=== PATIENT | female | born 1985 | race Caucasian/White ===

== ENCOUNTER 2019-05-26 08:35 | Emergency (ER) | payer OTHER ==
[~2019-05-26] VITALS: Ht 170.2 cm; Wt 77.2 kg
[~2019-05-26 08:35] MED LIST: ACET500C5 PO; LOPE2TAB61 PO; MAG-19 PO; ONDA4TAB13 PO
[2019-05-26 08:56] VITALS: BP 136/70; PULSE 105; RESP 16; Ht 170.2 cm; Wt 77.2 kg
== END 2019-05-26 10:18 | disposition home or self-care (01) ==
LOC: FTE 08:35
DX: O99.711 Diseases of the skin and subcutaneous tissue complicating pregnancy, first trimester (principal); L50.0 Allergic urticaria; Z3A.12 12 weeks gestation of pregnancy
CPT/HCPCS: 99282